=== PATIENT | male | born 1950 | race Caucasian/White ===

== ENCOUNTER 2016-04-30 09:41 | Inpatient (IN) | payer OTHER, MEDICARE ==
--- NOTE | ~2016-04-30 | PRECARD ---
H&P PRE [facility] [address] [place]. [address] NAME: SYLVAIN CHAVIRA : 48 STATUS : ADM IN [facility]#: [id number] AGE: 65 ADM/REG DATE : 04/30/16 MR#: [id number] REPORT SERV DATE: 04/30/16 DICTATED BY: EVA MCGRATH DATE: 04/30/16 REPORT STATUS : Draft TRANSCRIBED BY: ERICA DATE: 04/30/16 DATE OF ADMISSION: 04/30/2016 CHIEF COMPLAINT: Chest pain. REASON FOR ADMISSION: Myocardial infarction. SOURCE: The patient and the chart. HISTORY OF PRESENT ILLNESS: Mr. 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 He was in his usual state of health until about 2200 hours last night when he developed chest pain, described as dull, constant, substernal pain radiating to the left shoulder and his back, up to 8/10 in severity, came to [facility] Emergency Room this morning, was found to have inferior ST elevation. CODE STEMI was called. His pain was decreasing at the time of my arrival. He had associated shortness of breath, but no nausea, vomiting, dyspnea, or diaphoresis. He never had anything like this before. REVIEW OF SYSTEMS: All other systems are negative. ALLERGIES: NO KNOWN DRUG ALLERGIES. MEDICATIONS: Medication list will be forthcoming from his . CARDIAC RISK FACTORS: Include cholesterol and tobacco. Denies diabetes, hypertension, or family history. SOCIAL HISTORY: The patient lives in [place], [place]. He is . He has two children, alive and well. He is retired from industrial sales. He does smoke. FAMILY HISTORY: Father had coronary artery bypass grafting in his 60s. He is now in his 90s. PAST MEDICAL HISTORY: Significant for WPW. He has seen Dr. Villar and Dr. Garcia in the past and declined ablation, status post tonsillectomy, status post appendectomy, current sinus infection. PHYSICAL EXAMINATION: GENERAL: He is a well-developed, well-nourished, elderly white man, in no acute distress. VITAL SIGNS: Stable. Grossly afebrile. HEENT: Sclerae anicteric. Lips without cyanosis. NECK: Carotids 2+ and symmetrical. No bruits. No JVD. No thyromegaly. LUNGS: Clear to auscultation. No use of accessory muscles. HEART: Regular rate and rhythm without murmur, gallop, or rub. ABDOMEN: Positive bowel sounds. Soft, nontender. H&P [address] [place]. [address] NAME: SYLVAIN CHAVIRA : [birth year] STATUS : ADM IN [facility]#: [id number] AGE: 65 ADM/REG DATE : 04/30/16 MR#: [id number] REPORT SERV DATE: 04/30/16 DICTATED BY: EVA MCGRATH DATE: 04/30/16 REPORT STATUS : Draft TRANSCRIBED BY: MODL DATE: 04/30/16 EXTREMITIES: Pulses 2+ and symmetrical. No cyanosis, clubbing, or edema. He has normal Osbaldo or reverse Osbaldo test in the right arm. BACK: No CVA tenderness. MUSCULOSKELETAL: Good tone. NEUROLOGIC: Alert and oriented x3. DIAGNOSTIC DATA: EKG reveals sinus bradycardia, acute inferior myocardial infarction. LABORATORY DATA: Not yet available. IMPRESSION: 1. Acute inferior myocardial infarction onset 2200 hours last night by history, currently Killip class 1. 2. Tobacco use. 3. Hypercholesterolemia. 4. History of Pwkdx-Jvvojgxml-Gpasf syndrome, declined ablation. RECOMMENDATIONS: 1. Emergent cardiac catheterization, possible angioplasty already done. See report. 2. Aspirin and Brilinta at least one year, and aspirin indefinitely. 3. Beta blockers and CHANTALE inhibitors later. 4. Check fasting lipid profile, empiric statin therapy. 5. Complete database. [place] Eva Mcgrath M.D. / [id number] CC: Polo Vargas
[2016-04-30 09:53] LABS: BASOPHILS 0.2 %; BASOPHILS ABSOLUTE 0.03 10/3/uL (0.0-0.16); EOSINOPHILS 0.5 %; EOSINOPHILS ABSOLUTE 0.07 10/3/uL (0.0-0.53); HEMATOCRIT 46.6 % (40.0-51.0); HEMOGLOBIN 15.9 g/dL (13.6-17.8); IMMATURE GRANULOCYTES 0.3 %; IMMATURE GRANULOCYTES ABSOLUTE 0.04 10/3/uL (0.0-0.11); LYMPHOCYTES ABSOLUTE 2.93 10/3/uL (0.67-4.30); MEAN CORPUS HGB CONC 34.1 g/dL (32.0-36.0); MEAN CORPUSCULAR HEMOGLOB 28.9 pg (26.0-34.0); MEAN CORPUSCULAR VOLUME 84.6 fL (80-100); MONOCYTES 6.5 %; MONOCYTES ABSOLUTE 0.95 10/3/uL (0.21-1.20); NEUTROPHILS 72.5 %; NEUTROPHILS ABSOLUTE 10.65 10/3/uL (2.02-8.40); PLATELET COUNT 222 10/3/uL (150-400); RED CELL COUNT 5.51 10/6/uL (4.7-6.1)
[2016-04-30 09:54] LABS: MANUAL DIFF NO %; WHITE BLOOD CELLS 14.7 10/3/uL (4.5-10.5)
[2016-04-30 10:01] LABS: INTERNATIONAL NORMAL RATI 1.1 UNITS (-); PARTIAL THROMBO TIME 30.3 SEC (22.5-37.2); PROTIME (NOT ORD) 13.7 SEC (12.0-14.5)
[2016-04-30 10:03] LABS: CHLORIDE, SERUM 104 MMOL/L (96-112); POTASSIUM, SERUM 4.2 MMOL/L (3.5-5.3); SODIUM, SERUM 139 MMOL/L (135-148)
[2016-04-30 10:11] LABS: CO2 (CARBON DIOXIDE) 23 MMOL/L (24-34); CREATININE 1.36 MG/DL (0.70-1.30); GFR AFRICAN AMERICAN 62 ML/MIN (>=60); GFR NON AFRICAN AMERICAN 54 ML/MIN (>=60); GLUCOSE, SERUM 149 MG/DL (60-99)
[2016-04-30 10:13] LABS: BUN (BLOOD UREA NITROGEN) 23 MG/DL (6-23); CHEST PAIN PROFILE TAT 0 Hrs 25 Mins; TROPONIN I 6.42 NG/ML (<0.05)
[2016-04-30] MEDS ORDERED: CARD120 PO (12:00)
[2016-04-30] MEDS ORDERED: ASAB PO (12:01)
[2016-04-30] MEDS ORDERED: MEVACOR PO (12:01)
[2016-04-30 15:59] LABS: CKMB INDEX (NOT ORD) 12.8
[2016-05-01 04:45] LABS: BASOPHILS 0.2 %; BASOPHILS ABSOLUTE 0.02 10/3/uL (0.0-0.16); EOSINOPHILS 1.5 %; EOSINOPHILS ABSOLUTE 0.19 10/3/uL (0.0-0.53); HEMOGLOBIN 14.5 g/dL (13.6-17.8); IMMATURE GRANULOCYTES 0.4 %; IMMATURE GRANULOCYTES ABSOLUTE 0.05 10/3/uL (0.0-0.11); LYMPHOCYTES 22.7 %; LYMPHOCYTES ABSOLUTE 2.92 10/3/uL (0.67-4.30); MEAN CORPUS HGB CONC 33.7 g/dL (32.0-36.0); MEAN PLATELET VOLUME 12.4 fL (9.2-13.0); MONOCYTES 9.6 %; MONOCYTES ABSOLUTE 1.24 10/3/uL (0.21-1.20); NEUTROPHILS 65.6 %; NEUTROPHILS ABSOLUTE 8.45 10/3/uL (2.02-8.40); PLATELET COUNT 186 10/3/uL (150-400); RBC DISTRIBUTION WIDTH 14.1 % (12.0-16.0); WHITE BLOOD CELLS 12.9 10/3/uL (4.5-10.5)
[2016-05-01 04:46] LABS: MANUAL DIFF NO %
[2016-05-01 05:10] LABS: CALCIUM, SERUM 8.4 MG/DL (8.5-10.4); CHLORIDE, SERUM 112 MMOL/L (96-112); CHOL/HDL RATIO(NOT ORDER) 4.4 (0-5); CHOLESTEROL 135 MG/DL (< 200); CK-MB 149.4 NG/ML; CO2 (CARBON DIOXIDE) 22 MMOL/L (24-34); CPK 1873 U/L (0-200); CREATININE 1.03 MG/DL (0.70-1.30); GFR AFRICAN AMERICAN 87 ML/MIN (>=60); GFR NON AFRICAN AMERICAN 75 ML/MIN (>=60); HDL CHOLESTEROL 31 MG/DL (> 39); LDL CHOLESTEROL 66 MG/DL (< 130); NON-HDL CHOLESTEROL 104 MG/DL (< 160); POTASSIUM, SERUM 3.7 MMOL/L (3.5-5.3); SGPT(ALT) 56 U/L (5-65); SODIUM, SERUM 144 MMOL/L (135-148); TRIGLYCERIDE 194 MG/DL (< 150)
[2016-05-01 05:22] LABS: BUN (BLOOD UREA NITROGEN) 17 MG/DL (6-23); GLUCOSE, SERUM 94 MG/DL (60-99)
[2016-05-01 12:28] LABS: CK-MB 91.3 NG/ML; CKMB INDEX (NOT ORD) 6.6
[2016-05-02 04:53] LABS: BUN (BLOOD UREA NITROGEN) 16 MG/DL (6-23); CALCIUM, SERUM 8.4 MG/DL (8.5-10.4); CHLORIDE, SERUM 111 MMOL/L (96-112); CO2 (CARBON DIOXIDE) 23 MMOL/L (24-34); CREATININE 1.06 MG/DL (0.70-1.30); GFR AFRICAN AMERICAN 84 ML/MIN (>=60); GFR NON AFRICAN AMERICAN 73 ML/MIN (>=60); GLUCOSE, SERUM 86 MG/DL (60-99); POTASSIUM, SERUM 3.7 MMOL/L (3.5-5.3); SODIUM, SERUM 145 MMOL/L (135-148)
[2016-05-02] MEDS ORDERED: LIPITOR40 PO (08:19)
[2016-05-02] MEDS ORDERED: PLAVIX PO (08:21)
[2016-05-02] MEDS ORDERED: COREG3 PO (08:23)
[2016-05-02] MEDS ORDERED: PRIN2.5 PO (08:23)
[2016-05-02] MEDS ORDERED: NITROSTAT0.4 MG SL (08:24)
== END 2016-05-02 09:15 | disposition home or self-care (01) | DRG 247 ==
LOC: ER 09:41 → SSU2 09:44 → SSU1 11:21
PROVIDERS: Hospitalist; Internal Medicine Cardiovascular Disease
PROC: 027135Z Dilation of Coronary Artery, Two Arteries with Two Drug-eluting Intraluminal Devices, Percutaneous Approach (ICD-10-PCS; principal; 2016-04-30)
PROC: 4A023N7 Measurement of Cardiac Sampling and Pressure, Left Heart, Percutaneous Approach (ICD-10-PCS; 2016-04-30)
PROC: B2151ZZ Fluoroscopy of Left Heart using Low Osmolar Contrast (ICD-10-PCS; 2016-04-30)
PROC: B2111ZZ Fluoroscopy of Multiple Coronary Arteries using Low Osmolar Contrast (ICD-10-PCS; 2016-04-30)
DX: I21.19 ST elevation (STEMI) myocardial infarction involving other coronary artery of inferior wall (principal); F17.210 Nicotine dependence, cigarettes, uncomplicated; I25.10 Atherosclerotic heart disease of native coronary artery without angina pectoris; E78.00 Pure hypercholesterolemia, unspecified; I45.6 Pre-excitation syndrome; Z82.49 Family history of ischemic heart disease and other diseases of the circulatory system; Z98.890 Other specified postprocedural states
CPT/HCPCS: 71010; 80048; 80061; 82550; 82553; 83735; 84460; 84484; 85025; 85347; 85610; 85730; 93005; 93458; 99152; 99153; 99285; A9270-GY; C1725; C1769; C1874; C1887; C1894; C9606; J0583; J2250; J2370; J2405; J3010; Q9967